=== PATIENT | male | born 1955 | race Caucasian/White ===

== ENCOUNTER 2021-12-11 18:50 | Inpatient (IN) | payer BC ==
[~2021-12-11] VITALS: Ht 180.3 cm; Wt 118.0 kg
[2021-12-11] MEDS ORDERED: acetaminophen 325mg tablet PO ONE (19:25)
[2021-12-11 19:59] LABS: BASOPHILS % (AUTO) 0.3 % (0-1); EOSINOPHILS # (AUTO) 0.1 X10'3 (0-0.9); EOSINOPHILS % (AUTO) 0.8 % (0-6); HEMATOCRIT 34.6 % (42.0-52.0); HEMOGLOBIN 11.1 g/dl (14.0-17.9); LYMPHOCYTES # (AUTO) 0.7 X10'3 (1.1-4.8); LYMPHOCYTES % (AUTO) 8.4 % (21-51); MEAN CORPUSCULAR HEMOGLOBIN 18.8 PG (27.0-31.0); MEAN CORPUSCULAR HGB CONC 32.2 g/dL (33.0-36.5); MEAN CORPUSCULAR VOLUME 58.6 FL (78-98); MEAN PLATELET VOLUME 9.1 FL (7.4-10.4); MONOCYTES # (AUTO) 0.6 X10'3 (0-0.9); NEUTROPHILS # (AUTO) 6.5 X10'3 (1.8-7.7); NEUTROPHILS % (AUTO) 82.5 % (42-75); PLATELET COUNT 262 X10'3 (140-440); RED CELL DISTRIBUTION WIDTH 15.7 % (11.5-14.5); WHITE BLOOD COUNT 7.9 X10'3 (4.5-11.0)
[2021-12-11 20:12] LABS: ALANINE AMINOTRANSFERASE 90 U/L (12-78); ALBUMIN 3.1 G/DL (3.4-5.0); ALBUMIN/GLOBULIN RATIO 0.8 (1.1-1.5); ALKALINE PHOSPHATASE 123 IU/L (46-116); ANION GAP 8 (8-16); ASPARTATE AMINO TRANSFERASE 70 U/L (10-37); BILIRUBIN,TOTAL 0.8 MG/DL (0.1-1.0); BLOOD UREA NITROGEN 16 MG/DL (7-18); BUN/CREATININE RATIO 17.8 (5.4-32.0); CALCIUM 8.8 MG/DL (8.5-10.1); CHLORIDE 101 MMOL/L (99-107); GLUCOSE 115 MG/DL (70-104); POTASSIUM 4.5 MMOL/L (3.5-5.1); SODIUM 137 MMOL/L (135-145); TOTAL CARBON DIOXIDE 27.7 MMOL/L (24-32); TOTAL PROTEIN 7.2 G/DL (6.4-8.2); eGFR 85 ML/MIN
[2021-12-11 20:36] LABS: ANISOCYTOSIS 1+; ELLIPTOCYTES 1+; MICROCYTOSIS 3+; PLATELET ESTIMATE NORMAL; TARGET CELLS FEW; TEAR DROP CELLS FEW
[2021-12-11] MEDS ORDERED: dexamethasone inj 6 MG in dextrose 5%-water 100 ML IV ONE (21:15)
[2021-12-11] MEDS ORDERED: DEXA6TAB6 PO ×2 (21:20)
[2021-12-11] MEDS ORDERED: SOTROVIMAB 500mg injection 500 MG in normal saline 100ml IV soln 100 ML IV ONE (21:20)
[2021-12-12] MEDS ORDERED: magnesium 4gm in 100ml NS 100 ML IV PRN (05:40)
[2021-12-12] MEDS ORDERED: HYDROcodone/acetaminophen 5mg/325mg tablet PO PRN (05:40)
[2021-12-12] MEDS ORDERED: magnesium Cl slow-release 64mg tablet PO PRN (05:40)
[2021-12-12] MEDS ORDERED: albuterol 2.5 MG/3 ML nebule NEB PRN (05:40)
[2021-12-12] MEDS ORDERED: magnesium hydroxide 30ml (MOM) UD suspension PO PRN (05:40)
[2021-12-12] MEDS ORDERED: acetaminophen 325mg tablet PO PRN ×2 (05:40)
[2021-12-12] MEDS ORDERED: ondansetron/PF 4mg/2ml inj IV PRN (05:40)
[2021-12-12] MEDS ORDERED: potassium CL 10mEq/100ml bag 100 ML IV PRN (05:40)
[2021-12-12] MEDS ORDERED: magnesium 2GM in 50ml NS 50 ML IV PRN (05:40)
[2021-12-12] MEDS ORDERED: potassium Cl 20 mEq SR tablet PO PRN ×2 (05:40)
[2021-12-12] MEDS ORDERED: morphine 2 MG/ML inj. syringe IV PRN (05:40)
[2021-12-12] MEDS: K and/or MAG REPLACEMENT MC SCH ×2 (07:34→20:00)
[2021-12-12] MEDS ORDERED: dexamethasone 4mg/ml inj IV SCH (08:00)
[2021-12-12] MEDS: docusate sod 100mg capsule PO SCH ×2 (08:00→20:00)
[2021-12-12] MEDS: normal saline 1000ml 1,000 ML IV SCH ×2 (09:21→20:08)
[2021-12-12] MEDS: CefTRIAXone 2gm/D5W 50ml BAG 50 ML IV SCH (09:22)
[2021-12-12] MEDS: dexamethasone 6 MG/D5W 100ml IV.soln (total 101.5ml) IV SCH ×4 (11:43→20:08)
--- NOTE | 2021-12-12 14:50 | NUR ---
Report given to THONY Gann on the Ortho floor.
[2021-12-12 15:21] VITALS: BP 131/77
[2021-12-12] MEDS ORDERED: ALLO100T PO ×2 (15:31→16:03)
[2021-12-12 18:00] VITALS: BP 148/89
[2021-12-12] MEDS: enoxaparin 40mg/0.4ml syringe SQ SCH (19:58)
[2021-12-12 22:00] VITALS: BP 141/73
[2021-12-13 02:00] VITALS: BP 128/86
[2021-12-13 06:00] VITALS: BP 125/85
[2021-12-13] MEDS: K and/or MAG REPLACEMENT MC SCH ×2 (08:00→19:14)
[2021-12-13 08:20] LABS: BASOPHILS % (AUTO) 0.1 % (0-1); EOSINOPHILS % (AUTO) 0 % (0-6); HEMATOCRIT 32.9 % (42.0-52.0); HEMOGLOBIN 10.7 g/dl (14.0-17.9); LYMPHOCYTES # (AUTO) 0.5 X10'3 (1.1-4.8); LYMPHOCYTES % (AUTO) 6.1 % (21-51); MEAN CORPUSCULAR HEMOGLOBIN 19.1 PG (27.0-31.0); MEAN CORPUSCULAR HGB CONC 32.4 g/dL (33.0-36.5); MEAN CORPUSCULAR VOLUME 58.9 FL (78-98); MEAN PLATELET VOLUME 9.2 FL (7.4-10.4); MONOCYTES # (AUTO) 0.4 X10'3 (0-0.9); MONOCYTES % (AUTO) 5.1 % (2-12); NEUTROPHILS # (AUTO) 7.4 X10'3 (1.8-7.7); NEUTROPHILS % (AUTO) 88.7 % (42-75); PLATELET COUNT 370 X10'3 (140-440); RED BLOOD COUNT 5.59 X10'6 (4.70-6.10); RED CELL DISTRIBUTION WIDTH 15.8 % (11.5-14.5); WHITE BLOOD COUNT 8.4 X10'3 (4.5-11.0)
[2021-12-13 08:36] LABS: ALANINE AMINOTRANSFERASE 87 U/L (12-78); ALBUMIN 2.9 G/DL (3.4-5.0); ALBUMIN/GLOBULIN RATIO 0.9 (1.1-1.5); ALKALINE PHOSPHATASE 101 IU/L (46-116); ANION GAP 12 (8-16); ASPARTATE AMINO TRANSFERASE 32 U/L (10-37); BILIRUBIN,TOTAL 0.4 MG/DL (0.1-1.0); BLOOD UREA NITROGEN 16 MG/DL (7-18); BUN/CREATININE RATIO 21.1 (5.4-32.0); CALCIUM 8.7 MG/DL (8.5-10.1); CHLORIDE 103 MMOL/L (99-107); CREATININE 0.76 MG/DL (0.60-1.10); GLUCOSE 182 MG/DL (70-104); POTASSIUM 4.8 MMOL/L (3.5-5.1); SODIUM 138 MMOL/L (135-145); TOTAL CARBON DIOXIDE 23.5 MMOL/L (24-32); TOTAL PROTEIN 6.1 G/DL (6.4-8.2); eGFR > 90 ML/MIN
[2021-12-13] MEDS: CefTRIAXone 2gm/D5W 50ml BAG 50 ML IV SCH (09:57)
[2021-12-13] MEDS: dexamethasone 6 MG/D5W 100ml IV.soln (total 101.5ml) IV SCH ×4 (09:57→19:37)
[2021-12-13] MEDS: docusate sod 100mg capsule PO SCH ×2 (09:57→19:35)
[2021-12-13 10:00] VITALS: BP 153/105
[2021-12-13 16:15] LABS: ANISOCYTOSIS 1+; MICROCYTOSIS 3+; PLATELET ESTIMATE NORMAL; TOTAL CELLS COUNTED 100
[2021-12-13 16:16] LABS: ELLIPTOCYTES 2+; POIKILOCYTOSIS FEW; SCHISTOCYTES FEW; TARGET CELLS FEW; TEAR DROP CELLS FEW
[2021-12-13 16:17] LABS: SPHEROCYTES FEW
--- NOTE | 2021-12-13 18:24 | NUR ---
Problems reprioritized. Patient report given, questions answered & plan of care reviewed with THONY Blandon.
--- NOTE | 2021-12-13 18:40 | NUR ---
Patient in room ORTHO 4024B. I have received report from RN Mindi, and had the opportunity to ask questions and assume patient care. Pt. resting quietly in bed, no c/o voiced at this time.
[2021-12-13 19:38] VITALS: BP 138/80
[2021-12-13] MEDS: enoxaparin 40mg/0.4ml syringe SQ SCH (19:38)
[2021-12-13 22:00] VITALS: BP 147/93
[2021-12-14 02:00] VITALS: BP 125/85
[2021-12-14] MEDS: normal saline 1000ml 1,000 ML IV SCH (05:32)
--- NOTE | 2021-12-14 06:36 | NUR ---
Problems reprioritized. Patient report given, questions answered & plan of care reviewed with THONY Willis.
[2021-12-14 06:50] VITALS: BP 132/63
[2021-12-14 07:37] LABS: BASOPHILS % (AUTO) 0.1 % (0-1); EOSINOPHILS % (AUTO) 0 % (0-6); HEMATOCRIT 33.6 % (42.0-52.0); HEMOGLOBIN 10.8 g/dl (14.0-17.9); LYMPHOCYTES # (AUTO) 0.9 X10'3 (1.1-4.8); MEAN CORPUSCULAR HEMOGLOBIN 18.7 PG (27.0-31.0); MEAN CORPUSCULAR HGB CONC 32.1 g/dL (33.0-36.5); MEAN CORPUSCULAR VOLUME 58.2 FL (78-98); MEAN PLATELET VOLUME 8.9 FL (7.4-10.4); MONOCYTES # (AUTO) 0.6 X10'3 (0-0.9); MONOCYTES % (AUTO) 4.7 % (2-12); NEUTROPHILS % (AUTO) 88.2 % (42-75); PLATELET COUNT 493 X10'3 (140-440); RED BLOOD COUNT 5.77 X10'6 (4.70-6.10); RED CELL DISTRIBUTION WIDTH 16.2 % (11.5-14.5); WHITE BLOOD COUNT 12.5 X10'3 (4.5-11.0)
[2021-12-14] MEDS: docusate sod 100mg capsule PO SCH (07:39)
[2021-12-14] MEDS: CefTRIAXone 2gm/D5W 50ml BAG 50 ML IV SCH (07:39)
[2021-12-14] MEDS: dexamethasone 6 MG/D5W 100ml IV.soln (total 101.5ml) IV SCH ×2 (07:39)
--- NOTE | 2021-12-14 07:45 | NUR ---
O2 Sat at rest on room air:__90-91_% If below 89%: Recovery O2 Sat at rest on _LPM:___%:___% via (mask/nasal cannula, etc..) No further documentation is necessary. If O2 Sat did not drop below 89% on room air,ambulate patient on room air. O2 Sat while ambulating on room air:__86_% Recovery O2 Sat while ambulating on __LPM:_87-90__% No further documentation is necessary. If patient does not drop below 89% while ambulating, he/she does not qualify for home O2. Addendum: 12/14/21 at 1052 by Pina Smith RN O2 Sat at rest on room air:__90_% If below 89%: Recovery O2 Sat at rest on _LPM:___%:___% via (mask/nasal cannula, etc..) No further documentation is necessary. If O2 Sat did not drop below 89% on room air,ambulate patient on room air. O2 Sat while ambulating on room air:__86_% Recovery O2 Sat while ambulating on _4_LPM:_87__% No further documentation is necessary. If patient does not drop below 89% while ambulating, he/she does not qualify for home O2.
[2021-12-14 07:48] LABS: ALANINE AMINOTRANSFERASE 88 U/L (12-78); ALBUMIN 2.9 G/DL (3.4-5.0); ALBUMIN/GLOBULIN RATIO 0.9 (1.1-1.5); ANION GAP 10 (8-16); ASPARTATE AMINO TRANSFERASE 28 U/L (10-37); BILIRUBIN,TOTAL 0.6 MG/DL (0.1-1.0); BLOOD UREA NITROGEN 20 MG/DL (7-18); BUN/CREATININE RATIO 22.5 (5.4-32.0); CHLORIDE 106 MMOL/L (99-107); CREATININE 0.89 MG/DL (0.60-1.10); GLUCOSE 173 MG/DL (70-104); POTASSIUM 4.7 MMOL/L (3.5-5.1); SODIUM 140 MMOL/L (135-145); TOTAL CARBON DIOXIDE 23.7 MMOL/L (24-32); TOTAL PROTEIN 6.3 G/DL (6.4-8.2); eGFR 86 ML/MIN
[2021-12-14] MEDS: K and/or MAG REPLACEMENT MC SCH (08:00)
[2021-12-14] MEDS ORDERED: allopurinol 100mg tablet PO SCH (08:00)
--- NOTE | 2021-12-14 08:58 | NUR ---
Encouraged IS, patient made it up to 1000 Addendum: 12/14/21 at 0906 by Pina Smith RN Amended: Links added.
[2021-12-14 10:46] VITALS: BP 125/79
--- NOTE | 2021-12-14 12:14 | NUR ---
DR. GARDNER SEE PATIENT, PATIENT WILL BE DISCHARGED LATER TODAY ON OXYGEN. CORRECT PHARMACY IS [facility] [place]
[2021-12-14 14:00] VITALS: BP_SYST 122; BP_SYST 125; BP_DIAS 74; BP_DIAS 79
--- NOTE | 2021-12-14 14:15 | NUR ---
THE PATIENT STATED "[facility] DIDN'T DELIVER THE QUANTITY OF O2 HE NEEDED" WHEN I WALKED INTO THE ROOM, I ASKED WHAT DO YOU MEAN, HE STATED HIS DAUGHTER CALLED [facility] REGARDING THE O2 DELIVERY. I THEN EDUCATED THE PATIENT "WE USE MULTIPLE SERVICES, AND [facility] WAS ONE". HE WANTED ME TO GO FIND OUT WHAT WAS GOING ON, SO I CALLED [facility] THEY STATED IT WAS [facility], AND I WENT TO D/C THE PATIENT [facility] SHOWED UP AND EDUCATED THE PATIENT ON HOME O2. Addendum: 12/14/21 at 1744 by Pina Smith RN WRONG TIME 1615
[2021-12-14 14:22] LABS: ANISOCYTOSIS 1+; MICROCYTOSIS 3+; PLATELET ESTIMATE INCREASED
[2021-12-14 14:23] LABS: ELLIPTOCYTES 1+; POIKILOCYTOSIS 2+
[2021-12-14 14:24] LABS: BURR CELLS FEW; TEAR DROP CELLS FEW
--- NOTE | 2021-12-14 14:27 | NUR ---
O2 Sat at rest on room air:__90_% If below 89%: Recovery O2 Sat at rest on ___LPM:___%:___% via (mask/nasal cannula, etc..) No further documentation is necessary. If O2 Sat did not drop below 89% on room air,ambulate patient on room air. O2 Sat while ambulating on room air:__86_% Recovery O2 Sat while ambulating on __5_LPM:__90_% No further documentation is necessary. If patient does not drop below 89% while ambulating, he/she does not qualify for home O2.
[2021-12-14] MEDS ORDERED: DEC4T PO (14:47)
--- NOTE | 2021-12-14 16:15 | NUR ---
THE PATIENT STATED "[facility] DIDN'T DELIVER THE QUANTITY OF O2 HE NEEDED" WHEN I WALKED INTO THE ROOM, I ASKED WHAT DO YOU MEAN, HE STATED HIS DAUGHTER CALLED [facility] REGARDING THE O2 DELIVERY. I THEN EDUCATED THE PATIENT "WE USE MULTIPLE SERVICES, AND [facility] WAS ONE". HE WANTED ME TO GO FIND OUT WHAT WAS GOING ON, SO I CALLED [facility] THEY STATED IT WAS [facility], AND I WENT TO D/C THE PATIENT [facility] SHOWED UP AND EDUCATED THE PATIENT ON HOME O2.
--- NOTE | 2021-12-14 16:35 | NUR ---
PATIENTS BELONGING WERE PACKED UP, SULEMA ROMERO TOOK PATIENT TO DOWN STAIRS TO AWAIT HIS RIDE.
== END 2021-12-14 17:00 | disposition home or self-care (01) | DRG 177 ==
LOC: ER 18:51 → ED HOLD 12-12 05:42 → ORTHO 4S 12-12 15:21
PROVIDERS: ADMIT Internal Medicine; ATTEND Internal Medicine
PROC: XW033H6 Introduction of Other New Technology Monoclonal Antibody into Peripheral Vein, Percutaneous Approach, New Technology Group 6 (ICD-10-PCS; principal; 2021-12-11)
DX: U07.1 COVID-19 (principal); J12.82 Pneumonia due to coronavirus disease 2019; J96.01 Acute respiratory failure with hypoxia; R74.8 Abnormal levels of other serum enzymes; Z88.0 Allergy status to penicillin
CPT/HCPCS: 36415; 71045; 80053; 82948; 83880; 84145; 84484; 85007; 85008; 85025; 93005; 99285; G0378; J0696; J1100; J1650; J3490; J7030; J7060; Q0247

== ENCOUNTER 2024-08-30 11:49 | Outpatient (CLI) | payer MEDICARE ==
[~2024-08-30 11:49] MED LIST: ALLO100T PO
== END 2024-08-30 23:59 | disposition home or self-care (01) ==
LOC: RAD 11:49
PROVIDERS: ATTEND Nurse Practitioner
DX: Z86.14 Personal history of Methicillin resistant Staphylococcus aureus infection (principal)
CPT/HCPCS: 87081

== ENCOUNTER 2024-11-21 15:47 | Emergency (ER) | payer MEDICARE ==
[~2024-11-21] VITALS: Ht 172.7 cm; Wt 104.7 kg
[2024-11-21] MEDS: ondansetron/PF 4mg/2ml inj IV ONE (16:44)
[2024-11-21 16:57] LABS: BASOPHILS % (AUTO) 0.2 % (0-1); EOSINOPHILS % (AUTO) 0.1 % (0-6); HEMATOCRIT 37.6 % (42.0-52.0); HEMOGLOBIN 12.1 g/dl (14.0-17.9); LYMPHOCYTES # (AUTO) 1.1 X10'3 (1.1-4.8); LYMPHOCYTES % (AUTO) 8.8 % (21-51); MEAN CORPUSCULAR HEMOGLOBIN 19.4 PG (27.0-31.0); MEAN CORPUSCULAR HGB CONC 32.1 g/dL (33.0-36.5); MEAN CORPUSCULAR VOLUME 60.3 FL (78-98); MONOCYTES # (AUTO) 0.3 X10'3 (0-0.9); MONOCYTES % (AUTO) 2.5 % (2-12); NEUTROPHILS # (AUTO) 11.6 X10'3 (1.8-7.7); NEUTROPHILS % (AUTO) 88.4 % (42-75); PLATELET COUNT 223 X10'3 (140-440); RED BLOOD COUNT 6.22 X10'6 (4.70-6.10); RED CELL DISTRIBUTION WIDTH 16.2 % (11.5-14.5); WHITE BLOOD COUNT 13.1 X10'3 (4.5-11.0)
[2024-11-21 17:14] LABS: ALANINE AMINOTRANSFERASE 27 U/L (12-78); ALBUMIN 4.6 G/DL (3.4-5.0); ALBUMIN/GLOBULIN RATIO 1.7 (1.1-1.5); ALKALINE PHOSPHATASE 60 IU/L (46-116); ANION GAP 13 (8-16); ASPARTATE AMINO TRANSFERASE 15 U/L (10-37); BILIRUBIN,TOTAL 0.8 MG/DL (0.1-1.0); BLOOD UREA NITROGEN 22 MG/DL (7-18); CALCIUM 10.1 MG/DL (8.5-10.1); CHLORIDE 105 MMOL/L (99-107); GLUCOSE 169 MG/DL (70-104); POTASSIUM 3.9 MMOL/L (3.5-5.1); SODIUM 143 MMOL/L (135-145); TOTAL CARBON DIOXIDE 25.1 MMOL/L (24-32); TOTAL PROTEIN 7.3 G/DL (6.4-8.2); eCRCL 69 ML/MIN; eGFR 75 ML/MIN
[2024-11-21 17:21] LABS: PRO BRAIN NATRIURETIC PEPTIDE 80 PG/ML (0-125)
[2024-11-21] MEDS: morphine 4 MG/ML inj SYRINge IV ONE (17:54)
[2024-11-21 18:32] LABS: ANISOCYTOSIS 1+; ELLIPTOCYTES 1+; MICROCYTOSIS 2+; PLATELET ESTIMATE NORMAL; POIKILOCYTOSIS 1+; TEAR DROP CELLS FEW
[2024-11-21 18:33] LABS: BURR CELLS FEW
[2024-11-21] MEDS: ketorolac trometh 15mg/ml vial 15 MG/ML ML IV ONE (19:03)
[2024-11-21] MEDS: mag hydrox/Alum hydrox/simeth 30ml oral suspension PO ONE (20:31)
[2024-11-21] MEDS: LIDOcaine 2% Viscous 15ml cup MM PRN (20:31)
[2024-11-21 21:52] VITALS: BP 164/89; PULSE 69; RESP 16; TEMP 97.6; O2SAT 99
== END 2024-11-21 22:00 | disposition home or self-care (01) ==
LOC: ER 15:48
DX: R10.84 Generalized abdominal pain (principal); R11.10 Vomiting, unspecified; Z87.442 Personal history of urinary calculi; Z88.0 Allergy status to penicillin; Z79.899 Other long term (current) drug therapy
CPT/HCPCS: 36415; 71045; 74176; 76700; 80053; 83880; 84484; 85008; 85025; 93005; 96374; 96375; 99285; J1885; J2270; J2405

== ENCOUNTER 2025-01-02 06:50 | Day surgery (SDC) | payer MEDICARE ==
[2024-12-26 17:10] LABS: BASOPHILS % (AUTO) 0.6 % (0-1); EOSINOPHILS # (AUTO) 0.1 X10'3 (0-0.9); EOSINOPHILS % (AUTO) 1.9 % (0-6); LYMPHOCYTES # (AUTO) 1.9 X10'3 (1.1-4.8); LYMPHOCYTES % (AUTO) 30.9 % (21-51); MEAN CORPUSCULAR HEMOGLOBIN 19.4 PG (27.0-31.0); MEAN CORPUSCULAR VOLUME 60.6 FL (78-98); MEAN PLATELET VOLUME 9.7 FL (7.4-10.4); MONOCYTES # (AUTO) 0.4 X10'3 (0-0.9); NEUTROPHILS # (AUTO) 3.7 X10'3 (1.8-7.7); NEUTROPHILS % (AUTO) 59.6 % (42-75); PRE OP HEMATOCRIT 34.7 % (42.0-52.0); PRE OP HEMOGLOBIN 11.1 g/dL (14.0-17.9); PRE OP PLATELET COUNT 182 X10'3 (140-440); PRE OP WHITE BLOOD COUNT 6.2 10'3 (4.8-10.8); RED BLOOD COUNT 5.72 X10'6 (4.70-6.10); RED CELL DISTRIBUTION WIDTH 16.2 % (11.5-14.5)
[2024-12-26 17:25] LABS: ALBUMIN/GLOBULIN RATIO 1.5 (1.1-1.5); ALKALINE PHOSPHATASE 62 IU/L (46-116); BLOOD UREA NITROGEN 22 MG/DL (7-18); BUN/CREATININE RATIO 27.8 (10.0-20.0); CALCIUM 8.9 MG/DL (8.5-10.1); CHLORIDE 107 MMOL/L (99-107); CREATININE 0.79 MG/DL (0.60-1.10); PRE OP ALT 22 U/L (30-65); PRE OP ANION GAP 5 (8-16); PRE OP AST 11 U/L (10-37); PRE OP BILIRUB, TOTAL 0.4 MG/DL (0.0-1.0); PRE OP GLUCOSE 89 MG/DL (70-104); PRE OP POTASSIUM 3.9 MMOL/L (3.4-5.1); PRE OP SODIUM 142 MMOL/L (135-145); TOTAL CARBON DIOXIDE 29.7 MMOL/L (24-32); TOTAL PROTEIN 6.6 G/DL (6.4-8.2); eGFR > 90 ML/MIN
[2025-01-02] VITALS (14 sets, daily range): BP systolic 102–142; BP diastolic 61–80; PULSE 49–73; RESP 10–19; TEMP 97.5; O2SAT 93–99
[~2025-01-02] VITALS: Ht 172.7 cm; Wt 100.3 kg
[2025-01-02] MEDS: clindamycin-Cleocin 900mg/D5W 50 ML IV ONE (05:30)
[2025-01-02] MEDS ORDERED: BUPIVAcaine 2.5mg/ml inj 50ml vial (contains preservative) ONE (06:53)
[2025-01-02] MEDS ORDERED: LIDOcaine 1% 30ml preserv. free vial ONE (06:53)
[2025-01-02] MEDS ORDERED: fentaNYL/PF 50MCG/1 ML 2ML syringe IV PRN ×2 (07:50)
[2025-01-02] MEDS ORDERED: morphine 4 MG/ML inj SYRINge IV PRN (07:50)
[2025-01-02] MEDS ORDERED: ringers solution, lacted 1,000 ML IV SCH (07:50)
[2025-01-02] MEDS ORDERED: morphine 2 MG/ML inj. syringe IV PRN (07:50)
[2025-01-02] MEDS ORDERED: ondansetron/PF 4mg/2ml inj IV PRN (07:50)
[2025-01-02] MEDS ORDERED: hydrALAZINE 20mg/ml inj. IV PRN (07:50)
[2025-01-02] MEDS ORDERED: labetalol 20mg/4ml (5mg/ml) syringe IV PRN (07:50)
[2025-01-02] MEDS: ringers solution, lacted 1,000 ML IV SCH (07:52)
[2025-01-02] MEDS: famotidine 20mg tablet PO ONE (07:52)
[2025-01-02] MEDS: INDOCYANINE GREEN 25 MG/10 ML VIAL IV ONE (08:13)
[2025-01-02] MEDS ORDERED: sevoflurane 250ml liquid IH ONE (08:46)
[2025-01-02] MEDS ORDERED: LIDOcaine 1%/PF 5ML 10 MG/ML VIAL ONE (08:48)
[2025-01-02] MEDS ORDERED: rocuronium 10mg/ml inj IV ONE (08:48)
[2025-01-02] MEDS ORDERED: propofol inj 20 ML IV ONE (08:48)
[2025-01-02] MEDS ORDERED: fentaNYL/PF 50MCG/1 ML 2ML syringe ONE (08:48)
[2025-01-02] MEDS ORDERED: midazolam 1 mg/ML 2ml injection ONE (08:48)
[2025-01-02] MEDS ORDERED: acetaminophen 1,000mg/100ml IV 100 ML IV ONE (08:49)
[2025-01-02] MEDS ORDERED: ondansetron/PF 4mg/2ml inj ONE (08:49)
[2025-01-02] MEDS ORDERED: glycopyrrolate 0.2mg/ml inj ONE (08:49)
[2025-01-02] MEDS ORDERED: ATROPINE SULFATE 0.4 MG/ML injection (OR only) ONE (08:59)
[2025-01-02] MEDS ORDERED: ePHEDrine 50MG/ML INJ. ONE (09:03)
[2025-01-02] MEDS: BUPIVAcaine/PF 2.5 mg/ml (0.25%) 30ml vial IJ ONE (09:17)
[2025-01-02] MEDS ORDERED: oxyCODONE/APAP 5-325mg tablet PO PRN (11:10)
== END 2025-01-02 12:35 | disposition home or self-care (01) ==
LOC: PAS 06:50
PROVIDERS: ATTEND Surgery
DX: K42.9 Umbilical hernia without obstruction or gangrene (principal); K80.10 Calculus of gallbladder with chronic cholecystitis without obstruction; Z87.442 Personal history of urinary calculi; Z88.8 Allergy status to other drugs, medicaments and biological substances; Z79.899 Other long term (current) drug therapy; Z82.49 Family history of ischemic heart disease and other diseases of the circulatory system; Z87.891 Personal history of nicotine dependence; Z98.890 Other specified postprocedural states; Z88.0 Allergy status to penicillin; Z91.041 Radiographic dye allergy status; Z91.013 Allergy to seafood
CPT/HCPCS: 47563; 49591; 80053; 82948; 85025; 93005; A4215; A4615; A4618; A7000; J0131; J1100; J2003; J2250; J2405; J2704; J2710; J3010; J3490; J7030; J7120; Z7506; Z7508; Z7512; Z7610

== ENCOUNTER → 2025-03-07 | Outpatient (CLI) | payer MEDICARE ==
--- NOTE | 2025-03-07 17:38 | RADIOLOGY REPORT ---
Exam: CT CT ABDOMEN PELVIS History: LOWER ABDOMINAL PAIN Comparison Study: CT CT ABDOMEN PELVIS on DOS: 11/21/24 Technique: Multidetector spiral CT of the abdomen and pelvis was performed from lung bases to pubic symphysis. Imaging was performed without IV contrast. Axial, coronal and sagittal multiplanar reform ats were obtained from the axial data set by the technologist. Radiation dose : Abdomen/Pelvis: CTDIvol 27 mGy, DLP 1633 mGy*cm. Findings: Evaluation of solid organs is limited due to lack of intravenous contrast use. Lung Bases: No acute or significant lung base finding. Normal heart size. No pleural or pericardial effusion. Liver: The liver is normal in size. No focal lesions. Gallbladder and biliary Tree: Gallbladder is surgically absent. Spleen: Unremarkable Pancreas: The pancreas is grossly normal in appearance. Adrenal Glands: Unremarkable Kidneys: Kidneys are grossly normal without calculi or hydronephrosis. Bladder: Grossly unremarkable for degree of distention. Bowel: The stomach is grossly normal in appearance. Small bowel and colon are normal in caliber and d istribution. Normal appendix is visualized in the right lower quadrant without findings of appendicit is. Mild sigmoid diverticulosis. Ascites: Absent Lymphadenopathy: No mesenteric, retroperitoneal or periportal lymphadenopathy. Abdominal wall and Mesentery: Fat containing bilateral inguinal hernia. Vasculature: The visualized abdominal aorta is normal in size and caliber. Evaluation of abdominal a nd pelvic vessels is limited due to lack of intravenous contrast. Pelvic Organs: Unremarkable Musculoskeletal: No aggressive focal bony lesions, acute fractures or dislocation. IMPRESSION: 1. No acute abdominal or pelvic findings. Fat containing bilateral inguinal hernia left greater than right. Radiation optimization: All CT scans at this facility use at least one of these dose optimization caitie hniques: Automated exposure control mA and/or kV adjustment per patient size (includes targeted exams where dose is matched to clinical indication) or iterative reconstruction. HS:Y
== END | disposition home or self-care (01) ==
LOC: RAD 10:35
PROVIDERS: ATTEND Nurse Practitioner
DX: K57.30 Diverticulosis of large intestine without perforation or abscess without bleeding (principal); R10.30 Lower abdominal pain, unspecified; K40.90 Unilateral inguinal hernia, without obstruction or gangrene, not specified as recurrent; Z90.49 Acquired absence of other specified parts of digestive tract
CPT/HCPCS: 74176